=== PATIENT | male | born 1980 | race Hispanic/Latino ===

== ENCOUNTER 2020-10-11 14:01 | Inpatient (IN) | payer BC ==
[~2020-10-11] VITALS: Ht 172.7 cm; Wt 106.3 kg
[2020-10-11] MEDS ORDERED: HYDROCODONE/ACETAMINOPHEN 5/325 MG TAB PO ONE (14:30)
[2020-10-11 15:25] VITALS: BP 129/83
[2020-10-11] MEDS ORDERED: ONDANSETRON 4MG INJ IVP PRN (15:30)
[2020-10-11] MEDS ORDERED: MORPHINE 4 MG SYG IM PRN (15:30)
[2020-10-11 15:41] LABS: BASOPHILS % (AUTO) 0.4 % (0.0-5.0); EOSINOPHILS % (AUTO) 0.5 % (0.0-8.0); HEMATOCRIT 41.2 % (42-54); MEAN CORPUSCULAR HEMOGLOBIN 29.8 pg (27.0-33.0); MEAN CORPUSCULAR VOLUME 87.7 fL (79-99); MONOCYTES % (AUTO) 5.7 % (3.0-13.0); NEUTROPHILS % (AUTO) 75.6 % (40.0-77.0); PLATELET COUNT (AUTO) 215 K/uL (130-400); RED CELL DISTRIBUTION WIDTH 12.2 % (11.0-15.5); WHITE BLOOD COUNT (AUTO) 11.1 K/uL (4.8-10.8)
[2020-10-11 15:46] LABS: POTASSIUM 3.7 mmol/L (3.5-5.1)
[2020-10-11 15:51] LABS: BILIRUBIN,TOTAL 0.5 mg/dL (0.2-1.0); TOTAL PROTEIN, SERUM 8.1 g/dL (6.0-8.3)
[2020-10-11 17:59] VITALS: BP 146/88
[2020-10-11] MEDS ORDERED: MAG/ALUM/SIMETH 30 ML UDCUP PO PRN (18:00)
[2020-10-11] MEDS ORDERED: ACETAMINOPHEN 325 MG TAB PO PRN (18:00)
[2020-10-11] MEDS ORDERED: MORPHINE 4 MG SYG IV PRN (18:00)
[2020-10-11] MEDS ORDERED: NITROGLYCERIN 0.4 MG SL TAB SL PRN (18:00)
[2020-10-11] MEDS ORDERED: ONDANSETRON 4MG INJ IV PRN (18:00)
[2020-10-11] MEDS ORDERED: LACTULOSE 20 GM/30 ML UDCUP PO PRN (18:00)
[2020-10-11] MEDS ORDERED: GUAIFENESIN-DM 200/20 MG 10 ML PO PRN (18:00)
[2020-10-11] MEDS ORDERED: MORPHINE 2 MG SYG IV PRN (18:00)
[2020-10-11] MEDS ORDERED: DIPHENHYDRAMINE HCL 25 MG CAPSULE PO PRN (18:00)
[2020-10-11 19:19] VITALS: BP 124/82
[2020-10-11 21:30] VITALS: BP 123/86
[2020-10-11] MEDS: FAMOTIDINE 20MG VIAL IV SCH (21:47)
[2020-10-11] MEDS: LACTATED RINGERS 1000ML 1,000 ML IV SCH (21:47)
[2020-10-11 23:52] VITALS: BP 129/79
[2020-10-12] VITALS (7 sets, daily range): BP systolic 131–145; BP diastolic 72–103
[2020-10-12 00:33] LABS: INR 0.99 (0.85-1.15); PROTHROMBIN TIME 10.8 SEC (9.6-11.6)
[2020-10-12 00:34] LABS: PARTIAL THROMBOPLASTIN TIME 24.6 SEC (26.3-35.5)
[2020-10-12] MEDS: LACTATED RINGERS 1000ML 1,000 ML IV SCH ×3 (04:39→23:23)
[2020-10-12] MEDS: FAMOTIDINE 20MG VIAL IV SCH ×2 (09:06→20:34)
[2020-10-13] VITALS (26 sets, daily range): BP systolic 104–140; BP diastolic 69–90
[2020-10-13] MEDS: FAMOTIDINE 20MG VIAL IV SCH ×2 (08:23→21:00)
[2020-10-13] MEDS: LACTATED RINGERS 1000ML 1,000 ML IV SCH ×2 (08:24→20:00)
[2020-10-13] MEDS ORDERED: DEXAMETHASONE SOD PHOSPHATE 10MG/ML 1ML VIAL ONE (09:15)
[2020-10-13] MEDS ORDERED: LIDOCAINE PF 100MG/5ML (2%) SYRINGE 5ML ONE (09:15)
[2020-10-13] MEDS ORDERED: SUCCINYLCHOLINE CHLORIDE 20 MG/ML 10 ML VIAL ONE (09:15)
[2020-10-13] MEDS ORDERED: ONDANSETRON 4MG INJ ONE (09:15)
[2020-10-13] MEDS ORDERED: GLYCOPYRROLATE 1 MG/5 ML SYRINGE ONE (09:16)
[2020-10-13] MEDS ORDERED: ROCURONIUM 10MG/1ML SYR 10 MG/ML ML ONE (09:17)
[2020-10-13] MEDS ORDERED: NEOSTIGMINE 5MG/5ML SYR IV ONE (09:17)
[2020-10-13] MEDS ORDERED: FENTANYL CITRATE PF 50 MCG/1 ML 2ML VIAL ONE (09:17)
[2020-10-13] MEDS ORDERED: MIDAZOLAM HCL 1 MG/ML 2ML VIAL ONE (09:17)
[2020-10-13] MEDS ORDERED: PROPOFOL 10 MG/ML 20ML VIAL IV ONE (09:17)
[2020-10-13] MEDS ORDERED: PHENYLEPHRINE HCL 10 MG/ML 1ML VIAL IV ONE (09:22)
[2020-10-13] MEDS: CEFAZOLIN SODIUM 1 GM VIAL ONE ×2 (17:21→18:10)
[2020-10-13] MEDS ORDERED: DEXAMETHASONE SOD PHOSPHATE 4 MG/ML 1ML VIAL ONE (18:12)
[2020-10-13] MEDS ORDERED: ESMOLOL HCL 10 MG/ML 10 ML VIAL ONE (18:33)
[2020-10-13 21:38] LABS: HEMATOCRIT 37.5 % (42-54)
[2020-10-14] VITALS (7 sets, daily range): BP systolic 116–145; BP diastolic 75–95
[2020-10-14] MEDS: LACTATED RINGERS 1000ML 1,000 ML IV SCH (05:26)
[2020-10-14] MEDS: FAMOTIDINE 20MG VIAL IV SCH (08:40)
== END 2020-10-14 14:30 | disposition home or self-care (01) | DRG 493 ==
LOC: EDH 14:01 → EDHIP 17:49 → 3AH 10-12 00:02
PROVIDERS: ADMIT Internal Medicine; ATTEND Internal Medicine
PROC: 3E0T33Z Introduction of Anti-inflammatory into Peripheral Nerves and Plexi, Percutaneous Approach (ICD-10-PCS; 2020-10-13)
PROC: 0PSF06Z Reposition Right Humeral Shaft with Intramedullary Internal Fixation Device, Open Approach (ICD-10-PCS; principal; 2020-10-13 17:41)
PROC: 3E0T3BZ Introduction of Anesthetic Agent into Peripheral Nerves and Plexi, Percutaneous Approach (ICD-10-PCS; 2020-10-13 17:41)
DX: S42.301A Unspecified fracture of shaft of humerus, right arm, initial encounter for closed fracture (principal); J98.11 Atelectasis; R03.0 Elevated blood-pressure reading, without diagnosis of hypertension; D72.829 Elevated white blood cell count, unspecified; Z20.822 Contact with and (suspected) exposure to COVID-19; W23.0XXA Caught, crushed, jammed, or pinched between moving objects, initial encounter; Y93.89 Activity, other specified; Y92.89 Other specified places as the place of occurrence of the external cause; Y99.8 Other external cause status; Z90.49 Acquired absence of other specified parts of digestive tract; R09.02 Hypoxemia
CPT/HCPCS: 36415; 71045; 73030; 73060; 73070; 80053; 84484; 85014; 85018; 85025; 85610; 85730; 87635; 93005; G0378; J0330; J0690; J1100; J2001; J2250; J2270; J2370; J2405; J2704; J2710; J3010; J3490; J7030; J7120